=== PATIENT | female | born 1970 | race Caucasian/White ===

== ENCOUNTER 2016-06-08 08:35 | Observation (INO) ==
--- NOTE | 2016-06-08 08:58 | Emergency Department Note ---
Disposition Clinical Impression: Chest pain Qualifiers: Chest pain type: unspecified Qualified Code(s): R07.9 - Chest pain, unspecified Disposition: Admitted As Inpatient Condition: Good Referrals: Les Kaur MD [Primary Care Provider] - Forms: ED Satisfaction Letter Time of Disposition: 10:06 Chest Pain HPI - General Chief Complaint: ED Chest Pain Stated Complaint: Multiple complaints Time Seen by Provider: 06/08/16 08:54 Source: patient Mode of arrival: ambulatory Limitations: no limitations Vital Signs Reviewed: Yes Nursing Notes Reviewed: Yes - History of Present Illness HPI Narrative: 46-year-old female who states she thinks she had the flu last week with generalized body aches yesterday she bent over and developed acute onset left- sided chest pain with radiation into her neck and her left arm. Patient is a cigarette smoker does have a family history. No history of diabetes hypertension or high cholesterol. Pt complaint: chest pain Onset (ago): day(s) (1) Duration: constant Pain Location: substernal, left chest Severity scale (1-10): 8 Quality: heaviness, sharp Pain Radiation: neck Improves with: nothing Worsens with: nothing Treatments prior to arrival chest pain: none - Related Data Allergies Allergy/AdvReac Type Severity Reaction Status Date / Time No Known Allergies Allergy Verified 06/08/16 08:46 Constitutional: Denies: fever, chills, weakness, weight change Eyes: Denies: eye pain, eye discharge, vision change ENT ED: Denies: ear pain, throat pain, dental pain, hearing loss, epistaxis, congestion, dysphagia Cardiovascular: Reports: chest pain. Denies: palpitations, dyspnea on exertion , edema, syncope Respiratory: Denies: cough, dyspnea, wheezes, hemoptysis, stridor Gastrointestinal: Denies: abdominal pain, nausea, vomiting, diarrhea, constipation, hematemesis, melena, hematochezia Genitourinary: Denies: dysuria, frequency, hematuria, discharge Musculoskeletal: Denies: back pain, neck pain, arthralgia, myalgia Integumentary: Denies: rash, abrasion, lesions Neurological: Denies: headache, weakness, numbness, paresthesias, confusion, abnormal gait, vertigo Psychiatric: Denies: anxiety, depression, suicidal thoughts, homicidal thoughts , auditory hallucinations, visual hallucinations Endocrine: Denies: fatigue Hematological/Lymphatic: Denies: easy bleeding, easy bruising Allergic/Immunologic: Denies: facial swelling, urticaria Chest Pain PMH - Past Medical History Medical history: Reports: migraine Surgical history: Reports: cholecystectomy, hysterectomy, other Psychiatric history: Reports: no psych history BILINGUAL MEDICAL RECEPTIONIST history: Reports: no BILINGUAL MEDICAL RECEPTIONIST history - Social History Smoking Status: Current every day smoker Alcohol use: Reports: occasionally Drug use: Reports: marijuana Physical Exam - General Limitations: no limitations General appearance: alert, in no apparent distress - Head Head exam: atraumatic, normocephalic, normal inspection - Eye Eye exam: Present: normal appearance, PERRL, EOMI - ENT ENT exam: normal exam, normal oropharynx, mucous membranes moist - Neck Neck exam: Present: normal inspection, full ROM, trachea midline - Chest Chest inspection: Present: normal inspection, symmetric chest wall rise - Respiratory Respiratory exam: Present: normal lung sounds bilaterally - Cardiovascular Cardiovascular exam: Present: regular rate, normal rhythm, normal heart sounds - Abdominal Exam Abdominal exam: Present: soft, Non-Tender. Absent: tenderness, distention, guarding, rebound, rigidity - Extremities Exam Extremities exam: Present: normal inspection, full ROM. Absent: tenderness, pedal edema - Expanded Lower Extremity Exam Neurovascular/Tendon exam: Absent: motor deficit, sensory deficit, tendon deficit Gait: observed and normal - Back Exam Back exam: Present: normal inspection, full ROM. Absent: tenderness - Neurological Exam Neurological exam: Present: alert, oriented X3 - Psychiatric Psychiatric exam: Present: normal affect, normal mood - Skin Skin exam: Present: warm, dry, intact, normal color Course - Reevaluation(s) Reevaluation #1: 46-year-old with risk factors of family history and cigarette smoking who comes in complaining of pain across her chest up into her neck. She thought she had the flu last week her workup here is negative with risk factors will admit as a rule out. Time: 10:46 - Consultations Consultation #1: Discussed with Dr. Ron, it. Time: 10:45 Vital Signs Temperature 97.6 F 06/08/16 08:43 Pulse Rate 88 06/08/16 08:43 Respiratory Rate 16 06/08/16 08:43 Blood Pressure 127/92 06/08/16 08:43 O2 Sat by Pulse Oximetry 98 06/08/16 08:43 Temperature 97.6 F 06/08/16 08:43 Pulse Rate 61 06/08/16 10:03 Respiratory Rate 15 06/08/16 08:58 Blood Pressure 108/52 06/08/16 10:03 O2 Sat by Pulse Oximetry 99 06/08/16 10:03 Oxygen Delivery Oxygen Delivery Room Air Chest Pain - Lab Data Result diagrams: 06/08/16 09:08 06/08/16 09:08 Lab Results 06/08/16 06/08/16 06/08/16 Range/Units 09:08 09:08 09:08 WBC 9.3 (4.3-11.1) K/mcL RBC 4.76 (3.82-4.97) M/mcL Hgb 14.5 (11.5-15.4) g/dL Hct 43.1 (35.3-44.9) % MCV 90.5 (83.0-100.0) fL MCH 30.5 (28.0-33.3) pg MCHC 33.6 (31.6-35.5) g/dL RDW 13.0 (11.5-14.5) % Plt Count 237 (140-400) K/mcL MPV 9.1 L (9.4-12.4) fL Immature Gran % 0.3 (0-4) % Seg Neutrophils % 60.2 % Lymphocytes % 32.1 % Monocytes % 5.8 % Eosinophils % 1.1 % Basophils % 0.5 % Neutrophils # 5.6 (1.6-8.9) K/mcL Lymphocytes # 3.0 (0.6-4.6) K/mcL Monocytes # 0.5 (0.0-1.3) K/mcL Eosinophils # 0.1 (0.0-0.6) K/mcL Basophils # 0.1 (0.0-0.2) K/mcL PT 10.0 (9.4-12.1) Seconds INR 0.9 APTT 32.6 (26.0-36.0) Seconds D-Dimer 225 (0-500) ng/mLFEU Sodium 139 (136-145) mEq/L Potassium 4.3 (3.5-4.5) mEq/L Chloride 106 (98-109) mEq/L Carbon Dioxide 24 (19-29) mEq/L BUN 10 (7-20) mg/dL Creatinine 0.75 (0.57-1.11) mg/dL Est GFR ( Amer) > 60 (> 60) Est GFR (Non-Af Amer) > 60 (> 60) BUN/Creatinine Ratio 13 (6-26) Glucose 93 (70-99) mg/dL Calculated Osmolality 287 (280-300) Calcium 9.2 (8.6-10.8) mg/dL Troponin I (0-0.03) ng/mL 06/08/16 Range/Units 09:08 WBC (4.3-11.1) K/mcL RBC (3.82-4.97) M/mcL Hgb (11.5-15.4) g/dL Hct (35.3-44.9) % MCV (83.0-100.0) fL MCH (28.0-33.3) pg MCHC (31.6-35.5) g/dL RDW (11.5-14.5) % Plt Count (140-400) K/mcL MPV (9.4-12.4) fL Immature Gran % (0-4) % Seg Neutrophils % % Lymphocytes % % Monocytes % % Eosinophils % % Basophils % % Neutrophils # (1.6-8.9) K/mcL Lymphocytes # (0.6-4.6) K/mcL Monocytes # (0.0-1.3) K/mcL Eosinophils # (0.0-0.6) K/mcL Basophils # (0.0-0.2) K/mcL PT (9.4-12.1) Seconds INR APTT (26.0-36.0) Seconds D-Dimer (0-500) ng/mLFEU Sodium (136-145) mEq/L Potassium (3.5-4.5) mEq/L Chloride (98-109) mEq/L Carbon Dioxide (19-29) mEq/L BUN (7-20) mg/dL Creatinine (0.57-1.11) mg/dL Est GFR ( Amer) (> 60) Est GFR (Non-Af Amer) (> 60) BUN/Creatinine Ratio (6-26) Glucose (70-99) mg/dL Calculated Osmolality (280-300) Calcium (8.6-10.8) mg/dL Troponin I 0.00 (0-0.03) ng/mL - Radiology Data Radiology results reviewed: Yes I reviewed the patient's radiology results. Chest X-Ray 06/08/16 08:48 IMPRESSION: No acute cardiopulmonary process. D/ / 06/08/2016 09:13:48 Mansi Bajwa MD / [email or web address] Interpreting Provider: Mansi Bajwa MD - EKG Data EKG attestation: Yes I reviewed and interpreted this EKG. EKG shows normal: sinus rhythm Rate: normal Rhythm: NSR Interpretation: no acute changes Heart Score - Score History: Moderately Suspicious EKG: Normal Age: 45-65 Risk Factors: 1-2 risk factors Troponin: Less than normal limit HEART Score Total: 3
[2016-06-08 09:22] LABS: Basophils # 0.1 K/mcL (0.0-0.2); Basophils % 0.5 %; Eosinophils # 0.1 K/mcL (0.0-0.6); Eosinophils % 1.1 %; Hematocrit 43.1 % (35.3-44.9); Hemoglobin 14.5 g/dL (11.5-15.4); Immature Granulocytes % 0.3 % (0-4); Lymphocytes % 32.1 %; Mean Corpuscular HGB Conc 33.6 g/dL (31.6-35.5); Mean Corpuscular Hemoglobin 30.5 pg (28.0-33.3); Mean Corpuscular Volume 90.5 fL (83.0-100.0); Mean Platelet Volume 9.1 fL (9.4-12.4); Monocytes # 0.5 K/mcL (0.0-1.3); Monocytes % 5.8 %; Neutrophils # 5.6 K/mcL (1.6-8.9); Platelet Count 237 K/mcL (140-400); Red Blood Count 4.76 M/mcL (3.82-4.97); Segmented Neutrophils % 60.2 %
[2016-06-08 09:26] LABS: INR 0.9
[2016-06-08 09:29] LABS: Activated Partial Thrombo Time 32.6 Seconds (26.0-36.0)
[2016-06-08 09:34] LABS: BUN/Creatinine Ratio 13 (6-26); Blood Urea Nitrogen 10 mg/dL (7-20); Calcium 9.2 mg/dL (8.6-10.8); Carbon Dioxide 24 mEq/L (19-29); Chloride 106 mEq/L (98-109); Glucose 93 mg/dL (70-99); Osmolality,Calculated 287 (280-300); Potassium 4.3 mEq/L (3.5-4.5); Sodium 139 mEq/L (136-145); eGFR For African Americans > 60 (> 60); eGFR For Non-African Americans > 60 (> 60)
[2016-06-08] MEDS ORDERED: Naloxone 0.4 MG/ML INJ IVP PRN (12:40)
[2016-06-08] MEDS ORDERED: tiZANidine 4 MG TABLET PO PRN (12:42)
[2016-06-08] MEDS ORDERED: Ipratropium/Albuterol Neb 3 ML IH PRN (13:08)
--- NOTE | 2016-06-08 13:16 | Internal Med History&Physical ---
<Margi Nelson M - Last Filed: 06/08/16 13:38> Date of Encounter: 06/08/16 Time of Encounter: 13:09 Assessment and Plan (1) Chest pain Current visit: Yes Status: Acute Patient reporting left-sided chest pain that started a few days ago radiating to her left neck and down her left arm. She reports she has been suffering from a viral illness with nausea or vomiting and diarrhea over the last week. Vomiting and diarrhea have resolved. She is also had a chronic cough worse in last week with increased nasal drainage in the last week. On exam heart has regular rate and rhythm, lungs have mild inspiratory wheezes. Chest x-ray showed no acute cardiopulmonary process EKG showed normal sinus rhythm with no acute changes Troponin was negative at 0.00 D-dimer was negative at 225 Suspect chest pain may be related to her viral illness, and she may have undiagnosed asthma as she has been a smoker for almost 30 years. However will rule out ACS. 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 Discussed risks of smoking and encouraged smoking cessation. Patient is thinking about quitting. Will offer resources at discharge. (3) Headache Current visit: Yes Status: Acute Patient reports headache that has been on and off for the last week during her viral illness. She denies any change in vision or loss of consciousness. Tylenol and ibuprofen PRN for headache. Qualifiers: Headache type: tension-type Headache chronicity pattern: acute headache Intractability: not intractable Qualified Code(s): G44.209 - Tension-type headache, unspecified, not intractable (4) DVT prophylaxis Current visit: Yes Status: Acute encourage ambulation anti-embolic stockings lovenox 40mg SQ daily Internal Medicine - H&P: HPI Chief complaint: chest pain Admitted From: Emergency Dept Plans for Post Hospital Care: Home History of present illness: Ms. Stevens is a 46 year old female with no significant medical history presented to the emergency department today with complaints of chest pain. She reports she was sick in the last week with nausea, vomiting, and diarrhea. She reports she had a fever about a week ago and her illness started. She reports for the most part her vomiting and diarrhea have resolved, she continues to be nauseous. The chest pain started a few days ago, it comes and goes, it is located in her left chest and radiates up to her left neck and down her left arm with numbness and tingling. She describes the pain as a dull ache that has not been relieved by Tylenol that she is taking at home. She reports yesterday she experienced a little lightheadedness when she stood up after leaning over to take laundry out of the dryer. She also reports having an episode of her heart feeling like her heart was racing yesterday. She denies any shortness of breath. She does have a family history of cardiac disease and she is a smoker. Evaluation in the emergency department included an EKG which showed normal sinus rhythm with no acute changes, a chest x-ray that showed no acute cardiopulmonary process, rapid flu was negative, troponin was negative at 0.0, d -dimer was negative at 225. On exam, patient is alert and oriented, in no acute distress. Heart has regular rate and rhythm. Abdomen is nontender, soft , with normal bowel sounds. Lungs have very mild inspiratory wheezes. She denies any history of asthma, but reports she has been suffering of chronic cough worse in the morning. Past Med Surg Social Fam HX - Past Medical History Medical history: migraine Psychiatric history: no psych history - Past Surgical History Surgical History: appendectomy, cholecystectomy, hysterectomy, orthopedic, other (back fusion, shoulder surgery), other - Social History Smoking Status: Current every day smoker (29 Pack year history) Smokeless Tobacco Status: No Alcohol use: occasionally Drug use: marijuana - Family History Father Living Status: Age at : 61 Hx Family Cardiac Disorders: Yes Internal Medicine - H&P: Meds Gabapentin [Gabapentin] 800 mg PO TID 06/08/16 [History] Tizanidine HCl [Tizanidine HCl] 4 mg PO TID PRN 06/08/16 [History] Allergies No Known Allergies Allergy (Verified 06/08/16 08:46) All Systems PM: A 10-system review of systems was performed and is negative for pertinent findings except as documented above in the HPI. - Constitutional Constitutional: no chills, no fever(s), no night sweats - EENT Eyes: no change in vision, no discharge, no pain, no photophobia Ears: no ear discharge, no ear pain, no tinnitus Nose, mouth and throat: nasal discharge, no dysphagia, no neck pain, no sore throat - Cardiovascular Cardiovascular ROS IM: chest pain, lightheadedness, palpitations, no diaphoresis , no dyspnea, no syncope - Respiratory Respiratory: cough, no dyspnea, no wheezing, no excessive phlegm production - Gastrointestinal Gastrointestinal: nausea, no abdominal pain, no diarrhea, no hematemesis, no hematochezia, no melena, no vomiting - Genitourinary Genitourinary: no change in urinary stream, no dysuria, no flank pain, no hematuria - Musculoskeletal Musculoskeletal ROS IM: tingling (occasional tingling left arm), no numbness - Integumentary Integumentary IM: no rash, no unusual bruising - Neurological Neurological ROS: headache(s), no confusion, no convulsions, no focal weakness, no numbness, no tingling, no tremor(s) - Hematologic/Lymphatic Hematologic/Lymphatic: no easy bruising - Constitutional Vitals: Temp Pulse Resp BP Pulse Ox 97.8 F 58 16 109/70 96 06/08/16 12:34 06/08/16 12:34 06/08/16 12:34 06/08/16 12:34 06/08/16 12:34 General appearance: Present: A&O X 3, pleasant, no acute distress - Head Head exam: Present: atraumatic, normocephalic - Eye Eye exam: Present: PERRL, conjuntiva pink, sclera anicteric Pupils: Present: PERRL - Neck Neck exam general surgery: Present: supple, trachea midline. Absent: lymphadenopathy - Respiratory Respiratory exam: Present: wheezes (mild inspiratory). Absent: accessory muscle use, rales, rhonchi - Cardiovascular Cardiovascular exam: Present: RRR, +S1, +S2. Absent: diastolic murmur, gallop, rubs, systolic murmur - GI/Abdominal GI/Abdominal exam: Present: normal bowel sounds, soft, no peritoneal signs. Absent: distended, tenderness - Extremities Exam Extremities exam: Present: warm, radial pulses palpable and symetrical. Absent : calf tenderness, cyanotic, pedal edema - Neurological Exam Neurological exam: Present: CN II-XII intact, oriented X3, no focal deficits. Absent: facial droop, speech deficit - Skin Skin exam: Present: dry, intact Internal Med - H&P Results - Labs CBC & Chem 7: 06/08/16 09:08 06/08/16 09:08 Labs: All Lab Results (24 Hours) 06/08/16 06/08/16 06/08/16 Range/Units 09:08 09:08 09:08 WBC 9.3 (4.3-11.1) K/mcL RBC 4.76 (3.82-4.97) M/mcL Hgb 14.5 (11.5-15.4) g/dL Hct 43.1 (35.3-44.9) % MCV 90.5 (83.0-100.0) fL MCH 30.5 (28.0-33.3) pg MCHC 33.6 (31.6-35.5) g/dL RDW 13.0 (11.5-14.5) % Plt Count 237 (140-400) K/mcL MPV 9.1 L (9.4-12.4) fL Immature Gran % 0.3 (0-4) % Seg Neutrophils % 60.2 % Lymphocytes % 32.1 % Monocytes % 5.8 % Eosinophils % 1.1 % Basophils % 0.5 % Neutrophils # 5.6 (1.6-8.9) K/mcL Lymphocytes # 3.0 (0.6-4.6) K/mcL Monocytes # 0.5 (0.0-1.3) K/mcL Eosinophils # 0.1 (0.0-0.6) K/mcL Basophils # 0.1 (0.0-0.2) K/mcL PT 10.0 (9.4-12.1) Seconds INR 0.9 APTT 32.6 (26.0-36.0) Seconds D-Dimer 225 (0-500) ng/mLFEU Sodium 139 (136-145) mEq/L Potassium 4.3 (3.5-4.5) mEq/L Chloride 106 (98-109) mEq/L Carbon Dioxide 24 (19-29) mEq/L BUN 10 (7-20) mg/dL Creatinine 0.75 (0.57-1.11) mg/dL Est GFR ( Amer) > 60 (> 60) Est GFR (Non-Af Amer) > 60 (> 60) BUN/Creatinine Ratio 13 (6-26) Glucose 93 (70-99) mg/dL Calculated Osmolality 287 (280-300) Calcium 9.2 (8.6-10.8) mg/dL Troponin I (0-0.03) ng/mL 06/08/16 Range/Units 09:08 WBC (4.3-11.1) K/mcL RBC (3.82-4.97) M/mcL Hgb (11.5-15.4) g/dL Hct (35.3-44.9) % MCV (83.0-100.0) fL MCH (28.0-33.3) pg MCHC (31.6-35.5) g/dL RDW (11.5-14.5) % Plt Count (140-400) K/mcL MPV (9.4-12.4) fL Immature Gran % (0-4) % Seg Neutrophils % % Lymphocytes % % Monocytes % % Eosinophils % % Basophils % % Neutrophils # (1.6-8.9) K/mcL Lymphocytes # (0.6-4.6) K/mcL Monocytes # (0.0-1.3) K/mcL Eosinophils # (0.0-0.6) K/mcL Basophils # (0.0-0.2) K/mcL PT (9.4-12.1) Seconds INR APTT (26.0-36.0) Seconds D-Dimer (0-500) ng/mLFEU Sodium (136-145) mEq/L Potassium (3.5-4.5) mEq/L Chloride (98-109) mEq/L Carbon Dioxide (19-29) mEq/L BUN (7-20) mg/dL Creatinine (0.57-1.11) mg/dL Est GFR ( Amer) (> 60) Est GFR (Non-Af Amer) (> 60) BUN/Creatinine Ratio (6-26) Glucose (70-99) mg/dL Calculated Osmolality (280-300) Calcium (8.6-10.8) mg/dL Troponin I 0.00 (0-0.03) ng/mL <Domenico Ron - Last Filed: 06/08/16 19:39> Date of Encounter: 06/08/16 Internal Medicine - H&P: HPI History of present illness: Ms. Stevens is a 46 year old female All Systems PM: A 10-system review of systems was performed and is negative for pertinent findings except as documented above in the HPI. - Constitutional Vitals: Temp Pulse Resp BP Pulse Ox 97.8 F 61 12 100/65 98 06/08/16 19:17 06/08/16 19:17 06/08/16 19:17 06/08/16 19:17 06/08/16 19:17 Internal Med - H&P Results - Labs CBC & Chem 7: 06/08/16 09:08 06/08/16 09:08 Labs: Cardiac Enzymes 06/08/16 Range/Units 15:06 Troponin I 0.00 (0-0.03) ng/mL - Attending Attestation I examined this patient and my medical decision-making was reviewed with the Advanced Practice Provider. I agree with the documented findings, disposition and treatment plan as described except to the extent set forth below. Patient presented with chest pain. She had a recent episode of bronchitis. She described the pain as left-sided precordial aching and severe, radiating towards her back and neck and left arm. Plan: Transient troponin, rule out ACS, stress test in the morning. I have advised smoking cessation.
[2016-06-08] MEDS ORDERED: Aspirin 325 MG TABLET PO ONE (13:22)
[2016-06-08] MEDS ORDERED: Ibuprofen 400 MG TABLET PO PRN (13:25)
[2016-06-08] MEDS ORDERED: Nitroglycerin 0.4 MG TAB.SUBL SL PRN (13:27)
[2016-06-08] MEDS: Gabapentin 400 MG CAPSULE PO SCH ×2 (13:37→21:07)
[2016-06-08] MEDS: Ondansetron ODT 4 MG TAB.RAPDIS SL PRN (13:38)
[2016-06-08] MEDS ORDERED: Acetaminophen/Aspirin/Caffeine TABLET PO ONE (17:39)
[2016-06-08] MEDS ORDERED: Ketorolac 15 MG/ML VIAL IVP ONE (18:08)
[2016-06-09] MEDS: Ondansetron ODT 4 MG TAB.RAPDIS SL PRN ×2 (04:51→12:24)
[2016-06-09] MEDS ORDERED: Ketorolac 15 MG/ML VIAL IVP ONE (05:42)
[2016-06-09] MEDS ORDERED: *HR* Enoxaparin 40 MG/0.4 ML SYRINGE SQ SCH (07:00)
[2016-06-09 07:23] LABS: BUN/Creatinine Ratio 12 (6-26); Blood Urea Nitrogen 8 mg/dL (7-20); Calcium 8.6 mg/dL (8.6-10.8); Carbon Dioxide 25 mEq/L (19-29); Chloride 106 mEq/L (98-109); Glucose 84 mg/dL (70-99); Osmolality,Calculated 286 (280-300); Potassium 4.1 mEq/L (3.5-4.5); Sodium 139 mEq/L (136-145); eGFR For African Americans > 60 (> 60); eGFR For Non-African Americans > 60 (> 60)
[2016-06-09 07:26] LABS: Basophils % 0.7 %; Eosinophils # 0.1 K/mcL (0.0-0.6); Eosinophils % 2.5 %; Hematocrit 39.1 % (35.3-44.9); Hemoglobin 13.1 g/dL (11.5-15.4); Immature Granulocytes % 0.2 % (0-4); Lymphocytes # 2.8 K/mcL (0.6-4.6); Lymphocytes % 49.3 %; Mean Corpuscular HGB Conc 33.5 g/dL (31.6-35.5); Mean Corpuscular Hemoglobin 30.8 pg (28.0-33.3); Mean Platelet Volume 10.1 fL (9.4-12.4); Monocytes # 0.5 K/mcL (0.0-1.3); Monocytes % 8.7 %; Neutrophils # 2.2 K/mcL (1.6-8.9); Platelet Count 199 K/mcL (140-400); Red Blood Count 4.25 M/mcL (3.82-4.97); Red Cell Distribution Width 13.2 % (11.5-14.5); Segmented Neutrophils % 38.6 %
[2016-06-09] MEDS ORDERED: Regadenoson 0.4 MG/5 ML SYRINGE IVP ONE (09:46)
--- NOTE | 2016-06-09 12:04 | ECHO - Doppler Report ---
Echocardiogram Name: Viktoria Stevens Date of Study: 06/09/2016 Date: 1970 Ht: 73.0 in Medical Record#: [id number] Age: 46 Wt: 206.0 lb Gender: Female BSA: 2.18 Order #: [id number] Location: [facility] Room #: 3B Reading Physician: Susan Baldwin DO Acquisition Professional: Benson Oswald RDCS Ordering Physician: Margi Nelson CNP Primary Physician: Les Kaur MD Indications: Chest pain Impressions: LVEF 55%. Normal left ventricular size and systolic function. Normal diastolic function of the left ventricle. Normal right ventricular size and function. Mild mitral regurgitation. Mild tricuspid regurgitation. No pulmonary hypertension. Left Ventricular Wall Motion: Rest Echo Findings All wall segments showed normal motion. Findings: Study Quality * Technically sub-optimal due to body habitus. Aortic Valve * No aortic regurgitation. * Aortic valve not well visualized. * No aortic stenosis. Mitral Valve * Normal mitral valve structure. * No mitral stenosis. * Mild mitral regurgitation. Tricuspid Valve * Normal tricuspid valve structure. * Mild tricuspid regurgitation. * Estimated RA pressure is 3 mmHg. * Estimated RVSP is 21 mmHg. * No pulmonary hypertension. Pulmonic Valve * Pulmonic valve is not well visualized. * No pulmonic stenosis. * No pulmonic regurgitation. Pulmonary Artery * Pulmonary artery not well visualized. ECG Findings * Sinus bradycardia. Left Ventricle * Normal LV chamber size, wall thickness and function. * Normal left ventricular diastolic function. * LVEF 55%. Left Atrium * Normal left atrial size. Right Atrium * Normal right atrial size. Right Ventricle * Normal right ventricular structure and function. Interatrial Septum * No evidence of PFO by color Doppler. IVC * Normal IVC dimensions and inspiratory collapse. Pericardium * There is no pericardial effusion present. Aorta * Not well visualized. History History of Smoking Years 20 Packs 1 Family History of CAD Measurements: BP: 101/ 69 2D Normal Values IVSd: .67 cm 0.6 - 1.0 cm LVIDd: 4.76 cm 3.7 - 5.6 cm LVPWd: .65 cm 0.6 - 1.1 cm LVIDs: 3.48 cm 1.5 - 3.6 cm AO: 2.70 cm < 4.0 cm LA: 3.00 cm 2.0 - 4.0cm %FS: 26.90 cm >25 % LA volume: 68 Mitral Valve Peak E:.82 m/sec Peak A:.48 m/sec E/A Ratio:1.7 Peak E' Lat Vishal:12.1 cm/s Peak E' Med Vishal:10.3 cm/s E/E' Lat Ratio:6.8 E/E' Med Ratio:8 Tricuspid Valve TV Regurg Peak Grad: 18.00mmHg TV Regurg Peak Vishal: 2.10m/sec Updated by Susan Baldwin on 06/09/2016 12:00:28 PM electronically signed on 06/09/2016 12:01:14 PM with status of Final Wall Motion Valenzuela: 1=Normal, 2=Hypokinesis, 3=Akinesis, 4=Dyskinesis, 5=Aneurysmal, 6=Hyperkinetic, X=Not Visualized (Blank)=Missing
[2016-06-09] MEDS: Gabapentin 400 MG CAPSULE PO SCH (12:22)
[2016-06-09 12:38] VITALS: BP 92/66
--- NOTE | 2016-06-09 12:51 | Nuclear Medicine Stress Report ---
Regadenoson Nuclear Stress Name: Viktoria Stevens Date of Study: 06/09/2016 Date: 1970 Ht: 64.0 in Medical Record#: [id number] Age: 46 Wt: 206.0 lb Gender: Female Order #: [id number] Location: [facility] Room: [facility] Supervising Provider: Frank Waite CNP Reading Physician: Susan Baldwin DO Ordering Physician: Angela Ratliff CNP Primary Care Physician: Les Kaur MD Stress Technologist: Ayo Tinoco, DEBT COLLECTION SPECIALIST, CCT All Around Gear Machine Operator: Donavon Diaz Indications: Chest Pain, Dizziness Impression: Technically challenging study due to body habitus. There is a small sized, mild intensity perfusion defect involving the inferior apex and apical jya in which mild ischemia cannot be ruled out. Pharmacologic ECG was negative for ischemia at the level of heart rate achieved. Patient had chest pain with pharmacologic stress. Gated EF = 51%. Findings communicated to ordering provider. History: History of Smoking Stress Test Summary: Stress Test Type: Pharmacologic Regadenoson 0.4mg/5ml given IV Baseline Information: Initial Heart Rate: 57 Blood Pressure: 110/82 Stress Information: Stress Time: 4 min 00 sec Test Terminated Due to (primary): Completed Protocol Maximum Blood Pressure: 120/80 Maximum Heart Rate: 86 Percent Maximum Heart Rate Achieved: 50 Double Product: 10,320 METS Reached: 1 Symptoms: Chest ache, Headache, Nausea Nuclear Summary: SPECT myocardial perfusion imaging using Tc99m Sestamibi given intravenously was performed at rest and following cardiac stress testing. The resting images were obtained following initial dose of 9.9 mCi. Following stress an additional dose of 33.2 mCi was given at peak exercise or 30 seconds post regadenoson infusion. Medication Given: Time Medication Dose Units Route Findings: Stress Note * Resting ECG demonstrated normal sinus rhythm. * Pharmacologic stress ECG is negative for ischemia at level of heart rate achieved. * No arrhythmias were noted during stress. * Patient had chest pain/pressure during stress. Hemodynamic responses * Normal hemodynamic responses to pharmacologic stress. Study Quality * Study quality was challenging due to body habitus. Gated EF % * Gated EF = 51%. Left Ventricle * The left ventricle is not dilated. TID * No evidence of transient ischemic dilatation. Lung Uptake * There is no evidence of increase lung uptake. NORMALS * Normal wall motion. PERFUSION * Hot spot anterolateral wall may be consistent with breast attenuation. * There is a small sized, mild intensity stress perfusion defect involving the inferior apex and apical jay. * Other areas demonstrate homogeneous rest and stress perfusion. Updated by Susan Baldwin on 06/09/2016 12:43:44 PM electronically signed on 06/09/2016 12:45:47 PM with status of Final
--- NOTE | 2016-06-09 13:17 | Cardiology Consult Note ---
Date of Encounter: 06/09/16 Time of Encounter: 13:15 Assessment and Plan (1) Chest pain Current Visit: Yes Status: Acute Per Cardiology: Troponin 0.00 x 3. Atypical chest pain in setting of suspected viral illness. Chest pain worse today with deep inspiration. ECG shows sinus rhythm with no signs of ischemia. Qualifiers: Chest pain type: precordial pain Qualified Code(s): R07.2 - Precordial pain (2) Abnormal nuclear stress test Current Visit: Yes Status: Acute Per Cardiology: Echo shows EF preserved 55%, normal diastolic function, mild MR, mild TR, hypertension, no segmental wall motion analysis. Stress test noted to be technically challenging study, but showed small size, mild intensity perfusion defect involving the inferior apex and apical jay in which mild ischemia cannot be ruled out. A lengthy discussion with patient regarding stress test results and overall clinical picture. At this time patient agreeable for conservative medical management and follow-up in outpatient setting in a few weeks once recovered from acute viral illness. We discussed possible left heart catheterization, however patient prefers to continue to monitor and observe. Will discuss and review with Dr. Barba, cardiology will signoff, re-consult as needed, follow-up scheduled. All questions answered. (3) Smoker Current Visit: Yes Status: Acute Per Cardiology: History of nicotine abuse of one pack per day for 29 years. Smoking cessation counseling provided. Discussion w patient/family: The assessment and plan as outlined above was discussed with the patient who expressed understanding and agreement. All questions were answered. Thank you for involving us in the care of your patient. Please call with any questions. History of Present Illness Consult date: 06/09/16 Requesting physician: Angela Ratliff Consult reason: Abnormal Stress Test Chief complaint: CP History of present illness: Ms. Stevens is a 46 year old female with a relevant past history of nicotine abuse and migraines. She has smoked one pack per day for 29 years. Cardiology consult today for abnormal stress test. Patient reports intermittent chest pressure with exertion over the past 6 months that she attributes to anxiety. Patient reports about one week ago developed fever, chills, nausea, vomiting, diarrhea, and productive cough. Reports developed left-sided chest pain and left-sided neck pain with radiation to her left shoulder and left scapular region. She reports left neck pain is now been continuous for the past few days. She reports left-sided chest pain worse with deep inspiration today. Reports father with history of CAD with CABG in his late 50s. She denies any past personal history of CAD. Past Med Surg Social Fam HX - Past Medical History Attestation: Yes The following information was validated with the patient. Source: patient, old records reviewed Medical history: migraine Psychiatric history: no psych history - Past Surgical History Surgical History: appendectomy, cholecystectomy, hysterectomy, orthopedic, other (back fusion, shoulder surgery), other - Social History Smoking Status: Current every day smoker (29 Pack year history) Packs per day: 1 Smokeless Tobacco Status: No Alcohol use: occasionally Drug use: marijuana - Family History Father Living Status: Age at : 61 Hx Family Cardiac Disorders: Yes Medications and Allergies Gabapentin [Gabapentin] 800 mg PO TID 06/08/16 [History] Tizanidine HCl [Tizanidine HCl] 4 mg PO TID PRN 06/08/16 [History] Allergies No Known Allergies Allergy (Verified 06/08/16 08:46) All Systems Review: A 10-system review of systems was performed and is negative for pertinent findings except as documented above in the HPI. - Constitutional Constitutional: chills, fever(s) - Cardiovascular Cardiovascular: as per HPI, chest pain with exertion - Gastrointestinal Gastrointestinal: diarrhea, nausea Physical Examination Vital Signs, Last 4 Hours Temp Pulse Resp BP Pulse Ox 06/09/16 13:02 16 97 06/09/16 12:35 97.8 F 65 14 92/66 97 General: Conversant, No Apparent Distress HEENT: Atraumatic, Normocephaly, Mucus Membranes Moist Neck: No JVD Cardiac: Reg Rate and Rhythm, Normal S1 and S2, No Murmur Lungs: Normal Breath Sounds, No Wheeze, Rales, Rhonchi Neuro: Alert and responsive, No focal deficits noted Abdomen: Soft, Non-Tender Skin: No rashes noted on visualized skin Extremities: No Edema, Normal Pulses Results 06/09/16 06:03 06/09/16 06:03 Lab Results Laboratory Tests 06/08/16 06/08/16 06/08/16 09:08 09:08 15:06 INR 0.9 D-Dimer 225 Troponin I 0.00 0.00 06/08/16 20:43 INR D-Dimer Troponin I 0.00 ITS Impressions Chest X-Ray 06/08/16 08:48 IMPRESSION: No acute cardiopulmonary process. D/ / 06/08/2016 09:13:48 Mansi Bajwa MD / [email or web address] Interpreting Provider: Mansi Bajwa MD Active Medications Acetaminophen (Tylenol) 500 mg PO Q6HR PRN PRN Reason: Headache Stop: 12/08/16 13:26 Last Admin: 06/09/16 04:50 Dose: 500 mg Albuterol/Ipratropium (Duoneb) 3 ml IH [id number] PRN; Protocol PRN Reason: Shortness Of Breath/Wheezing Stop: 12/08/16 13:09 Last Admin: 06/09/16 13:02 Dose: 3 ml Enoxaparin Sodium (Lovenox) 40 mg SQ 0700 CARMEL PRN Reason: Protocol Stop: 12/09/16 07:01 Last Admin: 06/09/16 04:27 Dose: Not Given Gabapentin (Neurontin) 800 mg PO TID CARMEL Stop: 12/08/16 15:01 Last Admin: 06/09/16 12:22 Dose: 800 mg Ibuprofen (Motrin) 400 mg PO Q4HR PRN PRN Reason: FEVER/PAIN Stop: 12/08/16 13:26 Last Admin: 06/09/16 12:24 Dose: 400 mg Naloxone HCl (Narcan) 0.4 mg IVP Q2MIN PRN PRN Reason: Opioid Reversal Stop: 12/08/16 12:41 Nitroglycerin (Nitroglycerin) 0.4 mg SL Q5MIN PRN PRN Reason: Chest Pain Stop: 12/08/16 13:28 Ondansetron HCl (Zofran Odt) 4 mg SL Q8HR PRN PRN Reason: Nausea And Vomiting Stop: 12/08/16 12:41 Last Admin: 06/09/16 12:24 Dose: 4 mg Tizanidine HCl (Zanaflex) 4 mg PO TID PRN PRN Reason: Muscle Spasm Stop: 12/08/16 12:43 Last Admin: 06/09/16 12:22 Dose: 4 mg - Imaging and Cardiology Chest Xray: report reviewed Stress Test: report reviewed Echo: report reviewed - EKG Interpretation EKG results cardiology: personally reviewed, normal ECG, sinus rhythm, no diagnostic ischemia, other Consult Discharge Plan - Plan Referrals: Les Kaur MD [Primary Care Provider] -
--- NOTE | 2016-06-09 13:47 | Electrocardiograph Report ---
[place] [id number] Test Date: 2016-06-08 Pat Name: Viktoria Stevens Department: 105 Room: 3B Gender: F Normalizer: : 1970 Requested By: Flip Martinez Order Number: [id number] Reading MD: Jason Edouard MD Measurements Intervals [place] Rate: 61 P: 56 W[place]: 163 QRS: 57 QRSD: 90 T: 55 QT: 403 QTc: 407 Interpretive Statements SINUS RHYTHM Electronically Signed On 06-09-2016 13:46:00 EST by Jason Edouard MD
--- NOTE | 2016-06-09 14:24 | Discharge Summary ---
Date of Encounter: 06/09/16 Time of Encounter: 14:00 - Discharge Diagnosis (1) Chest pain Priority: Primary Status: Resolved Comments: Patient denied chest pain or shortness of breath at time of discharge. Chest x- ray negative. Echocardiogram unremarkable with ejection fraction 55%. She did have a mildly abnormal stress test and cardiology was brought on board who decided to proceed with medical management and for her to follow up outpatient. Qualifiers: Chest pain type: precordial pain Qualified Code(s): R07.2 - Precordial pain (2) Abnormal nuclear stress test Priority: Primary Status: Acute (3) DVT prophylaxis Priority: Primary Status: Acute Comments: Subcutaneous Lovenox while admitted (4) Headache Priority: Secondary Status: Resolved Qualifiers: Headache type: tension-type Headache chronicity pattern: acute headache Intractability: not intractable Qualified Code(s): G44.209 - Tension-type headache, unspecified, not intractable (5) Smoker Priority: Secondary Status: Chronic Comments: One pack per day smoker, declined counseling at this time - Discharge Medications Prescriptions: Nitroglycerin 0.4 mg SL Q5MIN PRN #20 tab.subl PRN Reason: Chest Pain Ondansetron ODT [Zofran ODT] 4 mg SL Q8HR PRN #15 tab.rapdis PRN Reason: Nausea And Vomiting Aspirin 81 mg PO DAILY #30 tab.chew Home Medications: Gabapentin 800 mg PO TID 06/08/16 [History] Tizanidine HCl 4 mg PO TID PRN 06/08/16 [History] Aspirin 81 mg PO DAILY #30 tab.chew 06/09/16 [Rx] Nitroglycerin 0.4 mg SL Q5MIN PRN #20 tab.subl 06/09/16 [Rx] Ondansetron ODT [Zofran ODT] 4 mg SL Q8HR PRN #15 tab.rapdis 06/09/16 [Rx] Allergies/Adverse Reactions: Allergies No Known Allergies Allergy (Verified 06/08/16 08:46) Procedures/tests Complete & Pending: Procedures Performed prior 72 hours Category Date Time Status NM radha perf SPECT multi [NM] Routine Exams 06/08/16 13:08 Taken EV echocardiogram Routine Y 06/09/16 13:07 Completed SP pharm nuclear stress Routine Y 06/09/16 07:45 Completed Date of admission: 06/08/16 10:50 Primary care physician: Les Kaur Consults: 06/09/16 13:00 Consult to Cardiology [CONS] Routine Comment: Consulting Provider: Mayuri Lopez Reason for Consult: abnl stress test Time Notified: 13:00 Call Completed: Yes Discharging clinician: Angela Ratliff Anticipated date of discharge: 06/09/16 (f/u outpatient with cards in 2 weeks) - Patient Status Disposition: Home, Self-Care Condition: Good Functional capacity at discharge: independent ambulation Overall status at discharge: patient is back to baseline - Discharge Instructions Follow Up With: Les Kaur MD [Primary Care Provider] - [facility]uri Lopez [Provider Group] Additional Instructions: Follow-up with primary care provider in one to 2 weeks, follow-up with cardiology within 2 weeks - Diet and Activity Activity: increase activity as tolerated Diet: low fat, low cholesterol Hospital course: Ms. Stevens is a 46 year old female with only past medical history of migraine and tobacco abuse. Patient presented to the emergency room for chief complaint of chest pain. Patient stated she was sick last week with nausea, vomiting, and diarrhea. Patient also endorsed a fever one week prior to presentation. Patient stating her vomiting and diarrhea had resolved but she continues to feel nauseated. Chest pain started a couple days prior to presentation, was intermittent, and located in her left chest and radiated to her left neck and down her left arm with numbness and tingling. Patient described the pain as a dull ache that was not relieved with Tylenol. Patient also endorsed mild lightheadedness on the day prior to presentation as well as feeling as if her heart was racing. Patient denies shortness of breath. Workup in the emergency department unremarkable. Chest x-ray negative. Troponins negative. Patient was admitted to the hospitalist service for further evaluation and management. Echocardiogram unremarkable with ejection fraction of 55%. Patient denied chest pain or shortness of breath throughout this admission. She had a nuclear stress test that was mildly abnormal so cardiology was brought on board. After discussing risks versus benefits and proposed treatment plans, the decision was made to proceed with medical management while the patient attempts to recover from her viral illness and for close outpatient follow-up with cardiology reconsideration of an outpatient left heart catheter as needed at that time. She was started on a baby aspirin for risk factor stratification. She was not started on a beta margarette due to her hypotension. She was discharged home in stable condition with close outpatient follow-up recommended. ITS Impressions Chest X-Ray 06/08/16 08:48 IMPRESSION: No acute cardiopulmonary process. D/ / 06/08/2016 09:13:48 Mansi Bajwa MD / vanessa Interpreting Provider: Mansi Bajwa MD Echocardiogram impressions: LVEF 55%. Normal left ventricular size and systolic function. Normal diastolic function of the left ventricle. Normal right ventricular size and function. Mild mitral regurgitation. Mild tricuspid regurgitation. No pulmonary hypertension. Nuclear stress test impression: Technically challenging study due to body habitus. There is a small sized, mild intensity perfusion defect involving the inferior apex and apical jay and which mild ischemia cannot be ruled out. Pharmacologic ECG was negative for ischemia at the level of heart rate achieved. Patient had chest pain with pharmacologic stress. Gated ejection fraction of 51%. - Time Spent with Patient Total time spent providing and/or coordinating discharge services: - Constitutional Vitals: Temp Pulse Resp BP Pulse Ox 97.8 F 65 16 92/66 97 06/09/16 12:35 06/09/16 12:35 06/09/16 13:02 06/09/16 12:35 06/09/16 13:02 General appearance: Present: A&O X 3, pleasant, no acute distress, answers questions appropriately - Head Head exam: Present: atraumatic, normocephalic - Eye Eye exam: Present: PERRL, conjuntiva pink, sclera anicteric Pupils: Present: PERRL - Neck Neck exam general surgery: Present: supple, trachea midline. Absent: lymphadenopathy - Respiratory Respiratory exam: Present: decreased breath sounds. Absent: accessory muscle use, CTAB, rales, respiratory distress, rhonchi, wheezes - Cardiovascular Cardiovascular exam: Present: RRR, +S1, +S2. Absent: diastolic murmur, gallop, rubs, systolic murmur - GI/Abdominal GI/Abdominal exam: Present: normal bowel sounds, soft, no peritoneal signs. Absent: distended, tenderness - Extremities Exam Extremities exam: Present: warm, radial pulses palpable and symetrical. Absent : calf tenderness, cyanotic, pedal edema - Neurological Exam Neurological exam: Present: alert, CN II-XII intact, normal gait, oriented X3, no focal deficits, strengths equal and symetr throughout. Absent: pronater drift, facial droop, speech deficit - Skin Skin exam: Present: dry, intact, normal color, warm - VTE Documentation of Mechanical Device: Graduated compression elastic hosiery
== END 2016-06-09 15:42 | disposition home or self-care (01) ==
LOC: 3BNU 08:35 → EMEROO 08:35 → 3BNU 11:53
PROVIDERS: ADMIT Internal Medicine; ATTEND Nurse Practitioner Family

== ENCOUNTER 2016-06-18 09:50 | Observation (INO) ==
[2016-06-18] MEDS ORDERED: Aspirin 81 MG TAB.CHEW PO STA (10:00)
[2016-06-18 10:47] LABS: Basophils % 0.4 %; Eosinophils # 0.1 K/mcL (0.0-0.6); Eosinophils % 1.2 %; Hematocrit 42.1 % (35.3-44.9); Hemoglobin 14.4 g/dL (11.5-15.4); Immature Granulocytes % 0.3 % (0-4); Lymphocytes # 2.8 K/mcL (0.6-4.6); Lymphocytes % 37.1 %; Mean Corpuscular HGB Conc 34.2 g/dL (31.6-35.5); Mean Corpuscular Hemoglobin 30.9 pg (28.0-33.3); Mean Corpuscular Volume 90.3 fL (83.0-100.0); Mean Platelet Volume 9.6 fL (9.4-12.4); Monocytes # 0.6 K/mcL (0.0-1.3); Monocytes % 7.9 %; Platelet Count 234 K/mcL (140-400); Red Blood Count 4.66 M/mcL (3.82-4.97); Segmented Neutrophils % 53.1 %
[2016-06-18 10:54] LABS: INR 0.9; Prothrombin Time 9.8 Seconds (9.4-12.1)
[2016-06-18 10:56] LABS: Activated Partial Thrombo Time 31.6 Seconds (26.0-36.0)
[2016-06-18 11:03] LABS: Alanine Aminotransferase 22 Units/L (0-55); Albumin 3.7 g/dL (3.5-5.0); Albumin/Globulin Ratio 1.1 (1.1-2.2); Alkaline Phosphatase 63 Units/L (38-126); Aspartate Amino Transferase 21 Units/L (5-34); BUN/Creatinine Ratio 14 (6-26); Bilirubin,Total 0.4 mg/dL (0.2-1.2); Blood Urea Nitrogen 9 mg/dL (7-20); Carbon Dioxide 25 mEq/L (19-29); Chloride 106 mEq/L (98-109); Globulin 3.5 g/dL (2.4-3.5); Glucose 88 mg/dL (70-99); Osmolality,Calculated 286 (280-300); Sodium 139 mEq/L (136-145); Total Protein 7.2 g/dL (6.0-8.3); eGFR For African Americans > 60 (> 60); eGFR For Non-African Americans > 60 (> 60)
--- NOTE | 2016-06-18 11:07 | Emergency Department Note ---
Disposition Clinical Impression: Chest pain Disposition: Admitted As Inpatient Chest Pain HPI - General Chief Complaint: ED Chest Pain Stated Complaint: chest [id number] Time Seen by Provider: 06/18/16 09:54 Source: patient Limitations: no limitations Vital Signs Reviewed: Yes Nursing Notes Reviewed: Yes - History of Present Illness HPI Narrative: Patient comes in complaining of chest pain is been going on for several weeks. Patient was seen at this facility about a week ago and admitted for similar. Patient was offered a heart catheter time but she declined stating she would like medical therapy. After discharge patient states she continues symptoms but today they are more severe than normal. Patient states the pain is radiated up to her neck and to her back which is different from in the past. Patient did take a nitroglycerin this morning the did give some relief of her symptoms. Patient denies any current shortness of breath denies dizziness. Severity scale (1-10): 8 - Related Data Home Medications Medication Instructions Recorded Confirmed Gabapentin 800 mg PO TID 06/08/16 06/18/16 Tizanidine HCl 4 mg PO TID PRN 06/08/16 06/18/16 Previous Rx's Medication Instructions Recorded Aspirin 81 mg PO DAILY #30 tab.chew 06/09/16 Nitroglycerin 0.4 mg SL Q5MIN PRN #20 tab.subl 06/09/16 Ondansetron ODT [Zofran ODT] 4 mg SL Q8HR PRN #15 tab.rapdis 06/09/16 Allergies Allergy/AdvReac Type Severity Reaction Status Date / Time No Known Allergies Allergy Verified 06/08/16 08:46 All systems ED: reviewed and negative except as stated. Chest Pain PMH - Past Medical History Medical history: Reports: migraine Surgical history: Reports: appendectomy, cholecystectomy, hysterectomy, orthopedic, other (back fusion, shoulder surgery), other Psychiatric history: Reports: no psych history LEAD JANITOR history: Reports: no LEAD JANITOR history - Social History Smoking Status: Current every day smoker Alcohol use: Reports: occasionally Drug use: Reports: marijuana Physical Exam - General Limitations: no limitations General appearance: alert, in no apparent distress - Head Head exam: atraumatic, normocephalic, normal inspection - Eye Eye exam: Present: normal appearance, PERRL, EOMI - ENT ENT exam: normal exam, normal oropharynx, mucous membranes moist - Neck Neck exam: Present: normal inspection, full ROM, trachea midline - Chest Chest inspection: Present: normal inspection, symmetric chest wall rise - Respiratory Respiratory exam: Present: normal lung sounds bilaterally - Cardiovascular Cardiovascular exam: Present: regular rate, normal rhythm, normal heart sounds - Abdominal Exam Abdominal exam: Present: soft, Non-Tender. Absent: tenderness, distention, guarding, rebound, rigidity - Extremities Exam Extremities exam: Present: normal inspection, full ROM. Absent: tenderness, pedal edema - Back Exam Back exam: Present: normal inspection, full ROM. Absent: tenderness - Neurological Exam Neurological exam: Present: alert, oriented X3 - Psychiatric Psychiatric exam: Present: normal affect, normal mood - Skin Skin exam: Present: warm, dry, intact, normal color Course Vital Signs Temperature 97.9 F 06/18/16 10:00 Pulse Rate 76 06/18/16 10:00 Respiratory Rate 16 06/18/16 10:00 Blood Pressure 106/79 06/18/16 10:00 O2 Sat by Pulse Oximetry 99 06/18/16 10:00 Temperature 97.9 F 06/18/16 10:00 Pulse Rate 69 06/18/16 12:14 Respiratory Rate 14 06/18/16 12:14 Blood Pressure 108/43 06/18/16 12:14 O2 Sat by Pulse Oximetry 95 06/18/16 12:14 Oxygen Delivery Oxygen Delivery Room Air Chest Pain - Differential Diagnosis Likely: stable angina, unstable angina pectoris, atypical chest pain - Medical Records Medical records reviewed: Yes I reviewed the patient's medical records. - Lab Data Lab results reviewed: Yes I reviewed the patient's lab results. Result diagrams: 06/18/16 10:23 06/18/16 10:23 Lab Results 06/18/16 06/18/16 06/18/16 Range/Units 10:23 10:23 10:23 WBC 7.4 (4.3-11.1) K/mcL RBC 4.66 (3.82-4.97) M/mcL Hgb 14.4 (11.5-15.4) g/dL Hct 42.1 (35.3-44.9) % MCV 90.3 (83.0-100.0) fL MCH 30.9 (28.0-33.3) pg MCHC 34.2 (31.6-35.5) g/dL RDW 13.0 (11.5-14.5) % Plt Count 234 (140-400) K/mcL MPV 9.6 (9.4-12.4) fL Immature Gran % 0.3 (0-4) % Seg Neutrophils % 53.1 % Lymphocytes % 37.1 % Monocytes % 7.9 % Eosinophils % 1.2 % Basophils % 0.4 % Neutrophils # 4.0 (1.6-8.9) K/mcL Lymphocytes # 2.8 (0.6-4.6) K/mcL Monocytes # 0.6 (0.0-1.3) K/mcL Eosinophils # 0.1 (0.0-0.6) K/mcL Basophils # 0.0 (0.0-0.2) K/mcL PT (9.4-12.1) Seconds INR APTT (26.0-36.0) Seconds D-Dimer (0-500) ng/mLFEU Sodium 139 (136-145) mEq/L Potassium 4.0 (3.5-4.5) mEq/L Chloride 106 (98-109) mEq/L Carbon Dioxide 25 (19-29) mEq/L BUN 9 (7-20) mg/dL Creatinine 0.66 (0.57-1.11) mg/dL Est GFR ( Amer) > 60 (> 60) Est GFR (Non-Af Amer) > 60 (> 60) BUN/Creatinine Ratio 14 (6-26) Glucose 88 (70-99) mg/dL Calculated Osmolality 286 (280-300) Calcium 9.0 (8.6-10.8) mg/dL Total Bilirubin 0.4 (0.2-1.2) mg/dL AST 21 (5-34) Units/L ALT 22 (0-55) Units/L Alkaline Phosphatase 63 (38-126) Units/L Troponin I 0.00 (0-0.03) ng/mL Serum Total Protein 7.2 (6.0-8.3) g/dL Albumin 3.7 (3.5-5.0) g/dL Globulin 3.5 (2.4-3.5) g/dL Albumin/Globulin Ratio 1.1 (1.1-2.2) 06/18/16 Range/Units 10:23 WBC (4.3-11.1) K/mcL RBC (3.82-4.97) M/mcL Hgb (11.5-15.4) g/dL Hct (35.3-44.9) % MCV (83.0-100.0) fL MCH (28.0-33.3) pg MCHC (31.6-35.5) g/dL RDW (11.5-14.5) % Plt Count (140-400) K/mcL MPV (9.4-12.4) fL Immature Gran % (0-4) % Seg Neutrophils % % Lymphocytes % % Monocytes % % Eosinophils % % Basophils % % Neutrophils # (1.6-8.9) K/mcL Lymphocytes # (0.6-4.6) K/mcL Monocytes # (0.0-1.3) K/mcL Eosinophils # (0.0-0.6) K/mcL Basophils # (0.0-0.2) K/mcL PT 9.8 (9.4-12.1) Seconds INR 0.9 APTT 31.6 (26.0-36.0) Seconds D-Dimer 234 (0-500) ng/mLFEU Sodium (136-145) mEq/L Potassium (3.5-4.5) mEq/L Chloride (98-109) mEq/L Carbon Dioxide (19-29) mEq/L BUN (7-20) mg/dL Creatinine (0.57-1.11) mg/dL Est GFR ( Amer) (> 60) Est GFR (Non-Af Amer) (> 60) BUN/Creatinine Ratio (6-26) Glucose (70-99) mg/dL Calculated Osmolality (280-300) Calcium (8.6-10.8) mg/dL Total Bilirubin (0.2-1.2) mg/dL AST (5-34) Units/L ALT (0-55) Units/L Alkaline Phosphatase (38-126) Units/L Troponin I (0-0.03) ng/mL Serum Total Protein (6.0-8.3) g/dL Albumin (3.5-5.0) g/dL Globulin (2.4-3.5) g/dL Albumin/Globulin Ratio (1.1-2.2) - Radiology Data Radiology results reviewed: Yes I reviewed the patient's radiology results. Chest X-Ray 06/18/16 09:59 IMPRESSION: No acute cardiopulmonary process. D/ / 06/18/2016 10:57:02 Abelino Cervantes MD / penelope Interpreting Provider: Abelino Cervantes MD - EKG Data EKG attestation: Yes I reviewed and interpreted this EKG. EKG shows normal: sinus rhythm Rate: normal Rhythm: NSR
[2016-06-18] MEDS ORDERED: Nitroglycerin 0.4 MG TAB.SUBL SL PRN (11:10)
--- NOTE | 2016-06-18 13:45 | Cardiology Consult Note ---
Date of Encounter: 06/18/16 Time of Encounter: 13:00 Assessment and Plan (1) Chest pain Current Visit: Yes Status: Acute Presents with atypical, pleuritic type chest pain--worsens with deep breath/ inspiration. Initial troponin negative. No ECG changes noted. Risk factors for CAD include: family hx (father, [place] at 61) and tobacco use. Abnormal stress test 06/09/16: small sized, mild intensity perfusion defect involving the inferior apex and apical jay in which mild ischemia cannot be ruled out; gated EF=51% TTE 06/09/16: EF 55%, mild MR, mild TR, normal wall motion. Given her very atypical chest pain, recommend medical management, will add betablocker. Continue asa. Check LP in AM. Will continue to monitor. Qualifiers: Chest pain type: unspecified Qualified Code(s): R07.9 - Chest pain, unspecified (2) Smoker Current Visit: Yes Status: Chronic Reports 20+ year hx of tobacco use--quit smoking last week. Continues to smoke marijuana daily. Discussion w patient/family: The assessment and plan as outlined above was discussed with the patient and/or family members who expressed understanding and agreement. All questions were answered. Thank you for involving us in the care of your patient. Please call with any questions. History of Present Illness Consult date: 06/18/16 Requesting physician: Guillermo Mcconnell Consult reason: Chest pain Chief complaint: Chest pain History of present illness: Ms. Stevens is a 46 year old female with PMH significant for arthritis, back surgery, tobacco/marijuana use who presented to the ED with complaints of worsening left-sided chest discomfort. She reports chest discomfort has been constant for the past several weeks. Discomfort is described as heaviness with sharp pain; discomfort radiates across side to ribs. She notes that pain worsened this AM and had pain that radiated up left side of neck and tingling down left arm. Associated symptoms include fatigue. Pain is worsened with deep breath/inspiration. Of note, she was hospitalized last week with similar symptoms; underwent nuclear stress test which was found to be mildly abnormal. Recent testing includes: TTE 06/09/16: EF 55%, mild MR, mild TR, normal wall motion Regadenoson nuclear 06/09/16: small sized, mild intensity perfusion defect involving the inferior apex and apical jay in which mild ischemia cannot be ruled out. Gated EF=51%d. Past Med Surg Social Fam HX - Past Medical History Attestation: Yes The following information was validated with the patient. Source: patient Medical history: migraine Psychiatric history: no psych history - Past Surgical History Surgical History: appendectomy, cholecystectomy, hysterectomy, orthopedic, other (back) - Social History Smoking Status: Current every day smoker (states quit last week.) Smokeless Tobacco Status: No Alcohol use: occasionally Drug use: marijuana - Family History Father Living Status: Hx Family Cardiac Disorders: Yes Medications and Allergies Gabapentin 800 mg PO TID 06/08/16 [History] Tizanidine HCl 4 mg PO TID PRN 06/08/16 [History] Aspirin 81 mg PO DAILY #30 tab.chew 06/09/16 [Rx] Nitroglycerin 0.4 mg SL Q5MIN PRN #20 tab.subl 06/09/16 [Rx] Ondansetron ODT [Zofran ODT] 4 mg SL Q8HR PRN #15 tab.rapdis 06/09/16 [Rx] Allergies No Known Allergies Allergy (Verified 06/08/16 08:46) All Systems Review: A 10-system review of systems was performed and is negative for pertinent findings except as documented above in the HPI. - Cardiovascular Cardiovascular: as per HPI Physical Examination Vital Signs, Last 4 Hours Temp Pulse Resp BP Pulse Ox 06/18/16 13:16 96 06/18/16 13:13 97.4 F L 59 16 114/77 96 06/18/16 12:32 16 100/56 06/18/16 12:14 69 14 108/43 95 06/18/16 12:01 67 16 110/67 96 General: Conversant, No Apparent Distress HEENT: Atraumatic, Normocephaly Cardiac: Reg Rate and Rhythm, Normal S1 and S2 Lungs: Normal Breath Sounds Neuro: Alert and responsive Abdomen: Soft Skin: No rashes noted on visualized skin Musculoskeletal: No Chest Wall Tenderness Extremities: No Edema, Normal Pulses Results 06/18/16 10:23 06/18/16 10:23 Active Medications Nitroglycerin (Nitroglycerin) 0.4 mg SL Q5MIN PRN PRN Reason: Chest Pain Stop: 12/18/16 11:11 - Imaging and Cardiology Chest Xray: report reviewed Stress Test: report reviewed Echo: report reviewed - EKG Interpretation EKG results cardiology: personally reviewed Consult Discharge Plan - Plan Referrals: Les Kaur MD [Primary Care Provider] - 06/24/16 9:45 am
--- NOTE | 2016-06-18 16:39 | Electrocardiograph Report ---
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
[2016-06-18] MEDS ORDERED: Ondansetron 4 MG/2 ML VIAL IVP PRN (16:44)
[2016-06-18] MEDS ORDERED: *HR* Morphine 2 MG/ML SYRINGE IVP PRN (17:31)
[2016-06-18] MEDS ORDERED: Naloxone 0.4 MG/ML INJ IVP PRN (17:31)
[2016-06-18] MEDS ORDERED: Acetaminophen 325 MG TABLET PO PRN (17:31)
--- NOTE | 2016-06-18 17:36 | Internal Med History&Physical ---
Date of Encounter: 06/18/16 Time of Encounter: 17:34 Assessment and Plan (1) Chest pain Status: Acute Ongoing chest pain with abnormal stress test recently, at which time she decided to follow medical management. Start Telemetry monitoring with serial Troponin trending; currently negative. Echocardiogram from 10days back shows preserved EF 55% with no other abnormalities. Nuclear stress test at that time showed small reversible area of ischemia in the inferior apex. Continue ASA; start beta-margarette; supportive care with supplemental O2, pain control with Morphine/Toradol, sublingual NTG; check lipid profile. Cardiology consult for possible left heart catheterization. Qualifiers: Chest pain type: precordial pain Qualified Code(s): R07.2 - Precordial pain (2) Abnormal nuclear stress test Status: Chronic plan as above; (3) Tobacco abuse Status: Chronic reports that she quit smoking for the last 10-12 days; does not require Nicotine patch at this time; Internal Medicine - H&P: HPI Chief complaint: Chest pain Admitted From: Emergency Dept Plans for Post Hospital Care: Home History of present illness: Ms. Stevens is a 46 year old female with no significant past medical history presents with c/o- left-sided chest pain. She had a recent admission with similar complaints with a slightly abnormal stress test at the time. She reports a week of Flu-like symptoms with congestion, myalgias after which she developed her chest pain. This has turned into heaviness in her central chest, worse with deep breathing and occasional palpitations. No associated diaphoresis , dyspnea, cough, dizziness or syncope. No prior similar symptoms. SHe has been smoking 1/2 pack per day for about 20 years but quit smoking since her last admission. Past Med Surg Social [facility] - Past Medical History Source: patient Medical history: migraine Psychiatric history: no psych history - Past Surgical History Surgical History: appendectomy, cholecystectomy, hysterectomy (partial), orthopedic, other (back/spinal, left shoulder tendon repair) - Social History Smoking Status: Current every day smoker (Quit since last admission about 10days ago; smoked 1/2Pack per day for 20years) Smokeless Tobacco Status: No Alcohol use: occasionally Drug use: marijuana Occupational status: unemployed Current living situation: Home, With Family Activity Level: Independent ambulation Recent Out of Country Travel Within the Last 8 Weeks: No Exposure or Possible Exposure to Illness During Travel: No - Family History Father Living Status: Hx Family Cardiac Disorders: Yes Hx Family Endocrine Disorder: Yes Internal Medicine - H&P: Meds Gabapentin 800 mg PO TID 06/08/16 [History] Tizanidine HCl 4 mg PO TID PRN 06/08/16 [History] Aspirin 81 mg PO DAILY #30 tab.chew 06/09/16 [Rx] Nitroglycerin 0.4 mg SL Q5MIN PRN #20 tab.subl 06/09/16 [Rx] Ondansetron ODT [Zofran ODT] 4 mg SL Q8HR PRN #15 tab.rapdis 06/09/16 [Rx] Atorvastatin [Lipitor] 20 mg PO HS #30 tablet 06/19/16 [Rx] Metoprolol [Lopressor] 12.5 mg PO BID #60 tablet 06/19/16 [Rx] Allergies No Known Allergies Allergy (Verified 06/08/16 08:46) All Systems PM: A 10-system review of systems was performed and is negative for pertinent findings except as documented above in the HPI. - Constitutional Constitutional: no chills, no fever(s), no night sweats - EENT Eyes: no change in vision, no discharge, no pain, no photophobia Ears: no ear discharge, no ear pain, no tinnitus Nose, mouth and throat: no dysphagia, no nasal discharge, no neck pain, no sore throat - Cardiovascular Cardiovascular ROS IM: chest pain, palpitations - Respiratory Respiratory: no cough, no dyspnea, no wheezing, no excessive phlegm production - Gastrointestinal Gastrointestinal: no abdominal pain, no diarrhea, no hematemesis, no hematochezia, no melena, no nausea, no vomiting - Genitourinary Genitourinary: no change in urinary stream, no dysuria, no flank pain, no hematuria - Musculoskeletal Musculoskeletal ROS IM: no numbness, no tingling - Integumentary Integumentary IM: no rash, no unusual bruising - Neurological Neurological ROS: no confusion, no convulsions, no focal weakness, no numbness, no tingling, no tremor(s) - Hematologic/Lymphatic Hematologic/Lymphatic: no easy bruising - Constitutional Vitals: Temp Pulse Resp BP Pulse Ox 97.7 F 68 16 102/64 96 06/18/16 16:54 06/18/16 16:54 06/18/16 16:54 06/18/16 16:54 06/18/16 16:54 General appearance: Present: A&O X 3, answers questions appropriately - Head Head exam: Present: atraumatic, normocephalic - Neck Neck exam general surgery: Present: supple, trachea midline. Absent: lymphadenopathy - Respiratory Respiratory exam: Present: CTAB, rhonchi (left basal rhonchi). Absent: accessory muscle use, rales, wheezes - Cardiovascular Cardiovascular exam: Present: RRR, +S1, +S2. Absent: diastolic murmur, gallop, rubs, systolic murmur - GI/Abdominal GI/Abdominal exam: Present: normal bowel sounds, soft, no peritoneal signs. Absent: distended, tenderness - Extremities Exam Extremities exam: Present: full ROM, warm, radial pulses palpable and symetrical. Absent: calf tenderness, cyanotic, pedal edema - Neurological Exam Neurological exam: Present: CN II-XII intact, oriented X3, no focal deficits. Absent: pronater drift, facial droop, speech deficit - Skin Skin exam: Present: dry, intact Internal Med - H&P Results - Labs CBC & Chem 7: 06/19/16 03:53 06/19/16 03:53 Labs: Cardiac Enzymes 06/18/16 Range/Units 16:29 Troponin I 0.00 (0-0.03) ng/mL
[2016-06-18] MEDS: Albuterol 2.5 MG/3 ML NEBULIZER IH SCH (20:22)
[2016-06-18] MEDS: Ketorolac 30 MG/ML VIAL IVP PRN (20:24)
[2016-06-19] MEDS: Albuterol 2.5 MG/3 ML NEBULIZER IH SCH ×4 (00:05→11:39)
[2016-06-19] MEDS: Ketorolac 30 MG/ML VIAL IVP PRN ×2 (03:32→10:09)
[2016-06-19 05:02] LABS: Basophils % 0.7 %; Eosinophils # 0.1 K/mcL (0.0-0.6); Immature Granulocytes % 0.3 % (0-4); Lymphocytes # 2.6 K/mcL (0.6-4.6); Lymphocytes % 44.1 %; Mean Corpuscular HGB Conc 32.8 g/dL (31.6-35.5); Mean Corpuscular Hemoglobin 29.7 pg (28.0-33.3); Mean Corpuscular Volume 90.5 fL (83.0-100.0); Mean Platelet Volume 9.4 fL (9.4-12.4); Monocytes # 0.5 K/mcL (0.0-1.3); Monocytes % 8.8 %; Neutrophils # 2.6 K/mcL (1.6-8.9); Platelet Count 208 K/mcL (140-400); Red Blood Count 4.31 M/mcL (3.82-4.97); Red Cell Distribution Width 12.9 % (11.5-14.5); Segmented Neutrophils % 44.1 %
[2016-06-19 05:08] LABS: Hemoglobin 12.8 g/dL (11.5-15.4)
[2016-06-19 05:13] LABS: BUN/Creatinine Ratio 14 (6-26); Blood Urea Nitrogen 10 mg/dL (7-20); Calcium 8.6 mg/dL (8.6-10.8); Carbon Dioxide 24 mEq/L (19-29); Chloride 105 mEq/L (98-109); Glucose 89 mg/dL (70-99); Osmolality,Calculated 283 (280-300); Potassium 3.9 mEq/L (3.5-4.5); Sodium 137 mEq/L (136-145); eGFR For African Americans > 60 (> 60); eGFR For Non-African Americans > 60 (> 60)
[2016-06-19 05:24] LABS: Chol/HDL Ratio 2.9 (0-4.9)
[2016-06-19] MEDS ORDERED: tiZANidine 4 MG TABLET PO PRN (08:00)
[2016-06-19] MEDS ORDERED: Aspirin Enteric Coated 81 MG Tablet PO SCH (09:00)
[2016-06-19] MEDS ORDERED: Gabapentin 400 MG CAPSULE PO SCH (09:00)
--- NOTE | 2016-06-19 09:24 | Cardiology Progress Note ---
Date of Encounter: 06/19/16 Time of Encounter: 08:00 Assessment and Plan (1) Chest pain Current Visit: Yes Status: Acute Presents with atypical, pleuritic type chest pain--worsens with deep breath/ inspiration. Initial troponin negative. No ECG changes noted. Risk factors for CAD include: family hx (father, [place] at 61) and tobacco use. Abnormal stress test 06/09/16: small sized, mild intensity perfusion defect involving the inferior apex and apical jay in which mild ischemia cannot be ruled out; gated EF=51% TTE 06/09/16: EF 55%, mild MR, mild TR, normal wall motion. Continues to have left-sided chest/rib pain--completely resolved with IV toradol. Recommend further work-up to determine etiology of non-cardiac causes of discomfort. Given her very atypical chest pain, recommend medical management, will add betablocker. Continue asa, statin, and betablocker. Follow-up as scheduled with [facility]. Qualifiers: Chest pain type: unspecified Qualified Code(s): R07.9 - Chest pain, unspecified (2) Smoker Current Visit: Yes Status: Chronic Reports 20+ year hx of tobacco use--quit smoking last week. Continues to smoke marijuana daily. (3) HLD (hyperlipidemia) Current Visit: Yes Status: Acute GGS=536, will add low-dose statin. Risk factor modification. Qualifiers: Hyperlipidemia type: pure hypercholesterolemia Qualified Code(s): E78.00 - Pure hypercholesterolemia, unspecified; E78.0 - Pure hypercholesterolemia Discussion w patient/family: The assessment and plan as outlined above was discussed with the patient and/or family members who expressed understanding and agreement. All questions were answered. Thank you for involving us in the care of your patient. Please call with any questions. The patient was discussed and reviewed with Dr. Diomedes Edmond; Cardiology will sign-off, please call with questions. Subjective Principal diagnosis: Chest pain Interval history: Seen and examined. She continues to have left-sided chest/rib discomfort that is worsened when taking a deep breath in. Toradol was started yesterday which completely resolved pain. Objective Vital Signs, Last 4 Hours Temp Pulse Resp BP Pulse Ox 06/19/16 08:04 97.6 F 70 16 101/60 95 06/19/16 07:24 18 98 General: Conversant, No Apparent Distress HEENT: Atraumatic, Normocephaly, Mucus Membranes Moist Cardiac: Reg Rate and Rhythm, Normal S1 and S2 Lungs: Normal Breath Sounds Neuro: Alert and responsive Abdomen: Soft Skin: No rashes noted on visualized skin Musculoskeletal: No Chest Wall Tenderness Extremities: No Edema, Normal Pulses Results 06/19/16 03:53 06/19/16 03:53 Lab Results 06/18/16 06/18/16 06/19/16 16:29 22:14 03:53 WBC Hgb Hct Plt Count Sodium Potassium Chloride Carbon Dioxide BUN Creatinine Glucose Calcium Troponin I 0.00 0.00 0.01 06/19/16 06/19/16 03:53 03:53 WBC 5.9 Hgb 12.8 D Hct 39.0 Plt Count 208 Sodium 137 Potassium 3.9 Chloride 105 Carbon Dioxide 24 BUN 10 Creatinine 0.70 Glucose 89 Calcium 8.6 Troponin I Active Medications Acetaminophen (Tylenol) 650 mg PO Q6HR PRN PRN Reason: Mild Pain (1-3) Stop: 12/18/16 17:32 Albuterol Sulfate (Proventil Neb) 2.5 mg IH [id number] [facility] PRN Reason: Protocol Stop: 12/18/16 20:01 Last Admin: 06/19/16 07:24 Dose: 2.5 mg Aspirin (Aspirin Ec) 81 mg PO DAILY [facility] Stop: 12/19/16 09:01 Last Admin: 06/19/16 09:01 Dose: 81 mg Atorvastatin Calcium (Lipitor) 20 mg PO HS [facility] Stop: 12/19/16 21:01 Gabapentin (Neurontin) 800 mg PO TID [facility] Stop: 12/19/16 09:01 Last Admin: 06/19/16 09:01 Dose: 800 mg Ketorolac Tromethamine (Toradol) 30 mg IVP Q6HR PRN PRN Reason: Moderate Pain (4-6) Stop: 06/23/16 17:32 Last Admin: 06/19/16 03:32 Dose: 30 mg Metoprolol Tartrate (Lopressor) 12.5 mg PO BID [facility] Stop: 12/18/16 21:01 Last Admin: 06/19/16 09:01 Dose: 12.5 mg Morphine Sulfate (Morphine Sulfate) 2 mg IVP Q4HR PRN PRN Reason: Severe Pain (7-10) Stop: 12/18/16 17:32 Naloxone HCl (Narcan) 0.4 mg IVP Q2MIN PRN PRN Reason: Opioid Reversal Stop: 12/18/16 17:32 Nitroglycerin (Nitroglycerin) 0.4 mg SL Q5MIN PRN PRN Reason: Chest Pain Stop: 12/18/16 11:11 Omeprazole (Prilosec) 20 mg PO DAILY@0630 [facility] PRN Reason: Protocol Stop: 12/19/16 06:31 Last Admin: 06/19/16 05:30 Dose: 20 mg Ondansetron HCl (Zofran) 4 mg IVP Q6HR PRN; Protocol PRN Reason: Nausea Stop: 12/18/16 16:45 Last Admin: 06/18/16 17:27 Dose: 4 mg Tizanidine HCl (Zanaflex) 4 mg PO TID PRN PRN Reason: Muscle Spasm Stop: 12/19/16 08:01 Last Admin: 06/19/16 09:01 Dose: 4 mg - Imaging and Cardiology Stress Test: report reviewed Echo: report reviewed Other Results: 12 hour tele: avg HR=77 SR. No significant event noted. - EKG Interpretation EKG results cardiology: personally reviewed Consult Discharge Plan - Plan Referrals: Les Kaur MD [Primary Care Provider] - 06/24/16 9:45 am Ilda Jeffery CNP [Partnered Physician] - 07/01/16 1:30 pm
[2016-06-19 11:37] VITALS: BP 89/58
--- NOTE | 2016-06-19 12:44 | Discharge Summary ---
Date of Encounter: 06/19/16 Time of Encounter: 12:38 - Discharge Diagnosis (1) Chest pain Priority: Primary Status: Acute Qualifiers: Chest pain type: precordial pain Qualified Code(s): R07.2 - Precordial pain (2) Tobacco abuse Priority: Secondary Status: Chronic (3) Abnormal nuclear stress test Priority: Primary () Status: Chronic (4) Migraine Priority: Secondary Status: Chronic Qualifiers: Migraine type: without aura Status migrainosus presence: without status migrainosus Intractability: not intractable Qualified Code(s): G43.009 - Migraine without aura, not intractable, without status migrainosus - Discharge Medications Prescriptions: Atorvastatin [Lipitor] 20 mg PO HS #30 tablet Metoprolol [Lopressor] 12.5 mg PO BID #60 tablet Home Medications: Gabapentin 800 mg PO TID 06/08/16 [History] Tizanidine HCl 4 mg PO TID PRN 06/08/16 [History] Aspirin 81 mg PO DAILY #30 tab.chew 06/09/16 [Rx] Nitroglycerin 0.4 mg SL Q5MIN PRN #20 tab.subl 06/09/16 [Rx] Ondansetron ODT [Zofran ODT] 4 mg SL Q8HR PRN #15 tab.rapdis 06/09/16 [Rx] Atorvastatin [Lipitor] 20 mg PO HS #30 tablet 06/19/16 [Rx] Metoprolol [Lopressor] 12.5 mg PO BID #60 tablet 06/19/16 [Rx] Allergies/Adverse Reactions: Allergies No Known Allergies Allergy (Verified 06/08/16 08:46) Date of admission: 06/18/16 11:57 Primary care physician: Les Kaur Discharging clinician: Keena Mccann Anticipated date of discharge: 06/19/16 - Patient Status Disposition: Home, Self-Care Condition: Good Functional capacity at discharge: independent ambulation Overall status at discharge: patient is back to baseline - Discharge Instructions Instructions: Atorvastatin (By mouth), Chest Pain (DC), How to Stop Smoking (DC ), Heart Healthy Diet (DC) Follow Up With: Les Kaur MD [Primary Care Provider] - 06/24/16 9:45 am Ilda Jeffery CNP [Partnered Physician] - 07/01/16 1:30 pm - Diet and Activity Activity: resume usual activities as tolerated Diet: low fat, low cholesterol Hospital course: Ms. Stevens is a 46 year old female admitted with chest pain. Patient recently underwent nuclear stress test which was abnormal and showed some reversible ischemia at inferior apex. Echocardiogram was WNL. Initial labs, EKG, CXR showed no acute abnormality; D-dimer was negative. Lipid profile was WNL. Cardiology was consulted and recommended no further cardiac testing. Patient's chest pain improved with Toradol and is likely musculoskeletal pain, from recent viral illness. SHe is medically stable for discharge. - Time Spent with Patient Total time spent providing and/or coordinating discharge services: Greater than 30 minutes (40 min) - Constitutional Vitals: Temp Pulse Resp BP Pulse Ox 97.9 F 59 19 89/58 95 06/19/16 11:36 06/19/16 11:36 06/19/16 11:42 06/19/16 11:36 06/19/16 11:42 General appearance: Present: A&O X 3, answers questions appropriately - Respiratory Respiratory exam: Present: CTAB. Absent: accessory muscle use, rales, rhonchi, wheezes - Cardiovascular Cardiovascular exam: Present: RRR, +S1, +S2. Absent: diastolic murmur, gallop, rubs, systolic murmur
== END 2016-06-19 13:47 | disposition home or self-care (01) ==
LOC: EMEROO 09:50 → 3BNU 09:50 → SUATTDRO 11:57 → 3BNU 13:02
PROVIDERS: ADMIT Registered Nurse; ATTEND Internal Medicine